=== PATIENT | male | born 1995 | race Two or more races ===

== ENCOUNTER 2025-02-10 11:57 | Emergency (ER) | payer MEDICAID, SELFPAY ==
--- OUTSIDE RECORDS SUMMARY | 2004-12-03 23:00 | XMS_ITS | Encounter Summary ---
Author Organization [facility] Address [address] [place] [address] Care Team Providers Care Activated Sludge Operator Name Role Phone Unavailable Primary Care Provider Unavailabl e Encounter Details Date Type Department Care Team (Late st Contact Info) Description 12/04/2004 Hospital Encounter [facility] Division of Neurology [address] [place] [phone] Social History Tobacco Use Types Packs/Day Years Used Date Smoking Tobacco: Never Assessed Intimate Partner Violence Answer Date R ecorded Safe in relationship? (up to 18) Not on file 05/13/2020 If you are in a relationship , do you feel safe in that relationship? Not currently in a relationship 05/13/2020 Safety and Environment Answer Date Amilcar rded Abuse or neglect worry (Parent/Guardian) Not on file 05/13/2020 Adult hurting you or family (11-18) Not on file 05/13/2020 Someone touched you in a sexual way? (11-18) Not on file 05/13/2020 Is someone hurting your or your family? No 05/13/2020 Historical abuse worry Not on file If you have firearms in the home, are they all in locked storage AND unloaded? Not on file 05/13/2020 Sex and Gender Information Value Date Recorded Sex Assigned at Not on file Legal Sex Male 5:17 AM EST Gender Identity Not on file Sexual Orientation Not on file documented as of this encounter Plan of Treatment Not on file documented as of this encounter Visit Diagnoses Not on filedocumented in this encounter Additional Health Concerns Infection Onset Date Last Indicated Resolved Time COVID-19 Rule Out 05/13/2020 05/13/2020 05/13/2020 11:57 AM EDT documented as of this encounter
--- OUTSIDE RECORDS SUMMARY | 2005-01-24 | XMS_ITS | Encounter Summary ---
Author Organization [facility] Address [address] [place] [address] Care Team Providers Care Clerical Production Worker Name Role Phone Unavailable Primary Care Provider Unavailabl e Encounter Details Date Type Department Care Team (Late st Contact Info) Description 01/24/2005 Hospital Encounter [facility] Division of Neurology [address] [place] [phone] Social History Tobacco Use Types Packs/Day [...] on file documented as of this encounter Miscellaneous Notes * Consent Other - Edt, Audit [place] - 08/08/2009 1:38 PM EDT documented in this encounter Plan of Treatment Not on file documented as of this encounter Visit Diagnoses Not on filedocumented in this encounter Additional Health Concerns Infection Onset Date Last Indicated Resolved Time COVID-19 Rule Out 05/13/2020 05/13/2020 05/13/2020 11:57 AM EDT documented as of this encounter
--- OUTSIDE RECORDS SUMMARY | 2005-01-24 | XMS_ITS | Encounter Summary ---
Author Organization [facility] Address [address] [place] [address] Care Team Providers Care Makeup Artistry Instructor Name Role Phone Unavailable Primary Care Provider Unavailabl e Encounter Details Date Type Department Care Team (Late st Contact Info) Description 01/24/2005 Hospital Encounter [facility] Department of Radiology [address] [place] [phone] Social History Tobacco Use Types Packs/Day [...] on file documented as of this encounter Nursing Notes * Edt, Audit [place] - 02/17/2005 12:00 AM EST * Edt, Audit [place] - 01/24/2005 12:00 AM EST documented in this encounter OR Notes * OR Anesthesia - Edt, Audit [place] - 02/17/2005 12:00 AM EST documented in this encounter Miscellaneous Notes * Consent Informed - Edt, Audit [place] - 02/17/2005 12:00 AM EST documented in this encounter Plan of Treatment Not on file documented as of this encounter Visit Diagnoses Not on filedocumented in this encounter Additional Health Concerns Infection Onset Date Last Indicated Resolved Time COVID-19 Rule Out 05/13/2020 05/13/2020 05/13/2020 11:57 AM EDT documented as of this encounter
--- OUTSIDE RECORDS SUMMARY | 2005-05-28 23:00 | XMS_ITS | Encounter Summary ---
Author Organization [facility] Address [address] [place] [address] Care Team Providers Care Retort Press Operator Name Role Phone Unavailable Primary Care Provider Unavailabl e Encounter Details Date Type Department Care Team (Late st Contact Info) Description 05/29/2005 Hospital Encounter [facility] Division of Neurology [address] [place] [phone] Social History Tobacco Use Types Packs/Day [...] Notes * Consent Other - Edt, Audit [place] - 08/08/2009 1:38 PM EDT * Orders - Edt, Audit [place] - 08/08/2009 1:09 PM EDT documented in this encounter Plan of Treatment Not on file documented as of this encounter Visit Diagnoses Not on filedocumented in this encounter Additional Health Concerns Infection Onset Date Last Indicated Resolved Time COVID-19 Rule Out 05/13/2020 05/13/2020 05/13/2020 11:57 AM EDT documented as of this encounter
--- OUTSIDE RECORDS SUMMARY | 2005-11-25 23:00 | XMS_ITS | Encounter Summary ---
Author Organization [facility] Address [address] [place] [address] Care Team Providers Care Mixer And Blender Name Role Phone Unavailable Primary Care Provider Unavailabl e Encounter Details Date Type Department Care Team (Late st Contact Info) Description 11/26/2005 Hospital Encounter [facility] Division of Neurology [address] [place] [phone] Social History Tobacco Use Types Packs/Day [...] Notes * Consent Other - Edt, Audit [place] - 08/08/2009 1:38 PM EDT * Orders - Edt, Audit [place] - 08/08/2009 1:09 PM EDT documented in this encounter Plan of Treatment Not on file documented as of this encounter Visit Diagnoses Not on filedocumented in this encounter Additional Health Concerns Infection Onset Date Last Indicated Resolved Time COVID-19 Rule Out 05/13/2020 05/13/2020 05/13/2020 11:57 AM EDT documented as of this encounter
--- OUTSIDE RECORDS SUMMARY | 2006-05-26 23:00 | XMS_ITS | Encounter Summary ---
Author Organization [facility] Address [address] [place] [address] Care Team Providers Care Admissions Counselor Name Role Phone Unavailable Primary Care Provider Unavailabl e Encounter Details Date Type Department Care Team (Late st Contact Info) Description 05/27/2006 Hospital Encounter [facility] Division of Neurology [address] [place] [phone] Social History Tobacco Use Types Packs/Day [...] Notes * Consent Other - Edt, Audit [place] - 08/08/2009 1:38 PM EDT * Orders - Edt, Audit [place] - 08/08/2009 1:09 PM EDT documented in this encounter Plan of Treatment Not on file documented as of this encounter Visit Diagnoses Not on filedocumented in this encounter Additional Health Concerns Infection Onset Date Last Indicated Resolved Time COVID-19 Rule Out 05/13/2020 05/13/2020 05/13/2020 11:57 AM EDT documented as of this encounter
--- OUTSIDE RECORDS SUMMARY | 2006-09-17 23:00 | XMS_ITS | Encounter Summary ---
Author Organization [facility] Address [address] [place] [address] Care Team Providers Care Safety Equipment Testing Specialist Name Role Phone Unavailable Primary Care Provider Unavailabl e Encounter Details Date Type Department Care Team (Late st Contact Info) Description 09/18/2006 Hospital Encounter [facility] Division of Neurology [address] [place] [phone] Social History Tobacco Use Types Packs/Day [...] on file documented as of this encounter Procedure Notes * Edt, Audit [place] - 01/06/2010 12:35 PM EST documented in this encounter Plan of Treatment Not on file documented as of this encounter Visit Diagnoses Not on filedocumented in this encounter Additional Health Concerns Infection Onset Date Last Indicated Resolved Time COVID-19 Rule Out 05/13/2020 05/13/2020 05/13/2020 11:57 AM EDT documented as of this encounter
--- OUTSIDE RECORDS SUMMARY | 2006-10-27 23:00 | XMS_ITS | Encounter Summary ---
Author Organization [facility] Address [address] [place] [address] Care Team Providers Care Prosthetist Name Role Phone Unavailable Primary Care Provider Unavailabl e Encounter Details Date Type Department Care Team (Late st Contact Info) Description 10/28/2006 Hospital Encounter [facility] Division of Neurology [address] [place] [phone] Social History Tobacco Use Types Packs/Day [...] as of this encounter Miscellaneous Notes * Orders - Edt, Audit [place] - 12/19/2010 9:45 PM EDT documented in this encounter Plan of Treatment Not on file documented as of this encounter Visit Diagnoses Not on filedocumented in this encounter Additional Health Concerns Infection Onset Date Last Indicated Resolved Time COVID-19 Rule Out 05/13/2020 05/13/2020 05/13/2020 11:57 AM EDT documented as of this encounter
--- OUTSIDE RECORDS SUMMARY | 2024-12-15 10:00 | XMS_ITS | Encounter Summary ---
Author Organization [facility] Address [address] [place] [address] Care Team Providers Care Gravity Prospecting Supervisor Name Role Phone Ricci Sarmiento MD Primary Care Provider [phone] Olivia Galicia APRN Unavailable [phone] George Glynn MD Unavailable [phone] George Glynn MD Unavailable [phone] Reason for Referral * Medications - Authorized Specialty Diagnoses / Procedures Referred By Harsha mccray Referred To Contact Deanna Chow MD [address] [address] Phone: tel: fax: Referral ID Status Reason Start Date Expiration Date V isits Requested Visits Authorized [id number] Authorized 12/16/2024 12/15/2025 1 1 * Medications - Authorized Specialty Diagnoses / Procedures Referred By Harsha mccray Referred To Contact Deanna Chow MD [address] [address] Phone: tel: fax: Referral ID Status Reason Start Date Expiration Date V isits Requested Visits Authorized [id number] Authorized 12/31/2024 12/30/2025 1 1 Encounter Details Date Type Department Care Team (Late st Contact Info) Description 12/15/2024 11:00 AM EDT Office Visit [facility] [address] [place] [address] Deanna Chow MD [address] [place] [address] Focal epilepsy with impairment of consciousness, intractable (CMS/HCC) (Primary Dx) Social History Tobacco Use Types Packs/Day Years Used Date Smoking Tobacco: Never Smokeless Tobacco: Never Alcohol Use Standard Drinks/Week Comments Yes 0 (1 standard drink = 0.6 oz pur e alcohol) Rare CAGE ASSESSMENT Answer Date Recorded Cage unable to access Not on file 03/28/2022 Cage max number of drinks Not on file 2022 Cage Beverages a week Not on file 03/28/2022 Have you ever felt you should CUT down on your d rinking? 0 03/28/2022 Have you been ANNOYED by people criticizing your drinking? 0 03/28/2022 Have you felt GUILTY about your drinking? 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 0 03/28/2022 CAGE Questionnaire Score 0 023 Sex and Gender Information Value Date Recorded Sex Assigned at Not on file Legal Sex Male 7:28 PM EDT Gender Identity Not on file Sexual Orientation Not on file documented as of this encounter Last Filed Vital Signs Vital Sign Reading Time Taken Comments Blood Pressure 114/80 12/15/2024 11:14 AM EDT Pulse 86 12/15/2024 11:14 AM EDT Temperature - - Respiratory Rate - - Oxygen Saturation 97% 12/15/2024 11: 14 AM EDT Inhaled Oxygen Concentration - - Weight 83.3 kg (183 lb 10.3 oz) 025 11:14 AM EDT Height 162.6 cm (5' 4 ) 12/15/2024 11:1 4 AM EDT Body Mass Index 31.52 12/15/2024 11:14 AM EDT documented in this encounter Functional Status * BP Answer Date of Assessment Author 114/80 12/15/2024 11:14 AM EDT Trina Callahan E * Pulse Answer Date of Assessment Author 86 12/15/2024 11:14 AM EDT Tory Callahananda E * SpO2 Answer Date of Assessment Author 97 12/15/2024 11:14 AM EDT Tory Callahananda E * Height Answer Date of Assessment Author 64 12/15/2024 11:14 AM EDTrina Greene E * Weight Answer Date of Assessment Author 2938.29 12/15/2024 11:14 AM EDSheryl Callahan Amanda E * BMI (Calculated) Answer Date of Assessment Author 31.6 12/15/2024 11:14 AM EDTrina Greene E * Percent Excess Weight Loss Answer Date of Assessment Author 0 12/15/2024 11:14 AM EDTrina Greene E * Total Weight Change Percent Answer Date of Assessment Author 2222 12/15/2024 11:14 AM EDTrina Greene E * Weight Change Since Preop Answer Date of Assessment Author 83.28 12/15/2024 11:14 AM EDSheryl Callahan Amanda E * Initial Excess Weight Answer Date of Assessment Author -58.97 12/15/2024 11:14 AM EDTrina Greene E * IBW in lbs (Bariatric) Answer Date of Assessment Author 130 12/15/2024 11:14 AM EDSheryl Callahan Amanda E * Weight Change Since Last Visit Answer Date of Assessment Author 83.28 12/15/2024 11:14 AM EDTrina Greene E * IBW in kg (Bariatric) Answer Date of Assessment Author 58.97 12/15/2024 11:14 AM EDTrina Greene E * Percent of IBW Answer Date of Assessment Author 4,982.69 12/15/2024 11:14 AM EDTrina Greene E * EBW (kg) Answer Date of Assessment Author 2,936.62 12/15/2024 11:14 AM EDT Callahan, Trina E * EBW (lbs) Answer Date of Assessment Author 2,930.17 12/15/2024 11:14 AM EDT Callahan, Trina E * Weight Change 24 hrs Answer Date of Assessment Author 1 12/15/2024 11:14 AM EDT Callahan, Trina E * BSA (Calculated - sq m) Answer Date of Assessment Author 1.94 12/15/2024 11:14 AM EDT Callahan, Trina E * BMI (Calculated) Answer Date of Assessment Author 31.51 12/15/2024 11:14 AM EDT Callahan Trina E * BP Location Answer Date of Assessment Author Left arm 12/15/2024 11:14 AM EDT Callahan, Trina E * IBW/kg (Calculated) Male Answer Date of Assessment Author 59.2 12/15/2024 11:14 AM EDT Callahan, Trina E * IBW/kg (Calculated) Female Answer Date of Assessment Author 54.7 12/15/2024 11:14 AM EDT Callahan, Trina E * IBW/kg (Calculated) Answer Date of Assessment Author 59.2 12/15/2024 11:14 AM EDT Callahan Trina E * Weight in (lb) to have BMI = 25 Answer Date of Assessment Author 145.3 12/15/2024 11:14 AM EDT Callahan, Trina E * BMI (Calculated) Answer Date of Assessment Author 31.6 12/15/2024 11:14 AM EDT Sindy Trina E * Percent Excess Weight Loss Answer Date of Assessment Author 0 12/15/2024 11:14 AM EDT Callahan Trina E * Weight Change Since Preop Answer Date of Assessment Author 83.3 12/15/2024 11:14 AM EDT Callahan, Trina E * Initial Excess Weight Answer Date of Assessment Author -58.97 12/15/2024 11:14 AM EDT Callahan, Trina E * IBW in kg (Bariatric) Answer Date of Assessment Author 58.97 12/15/2024 11:14 AM EDT Callahan Trina E * IBW in lb (Bariatric) Answer Date of Assessment Author 130 12/15/2024 11:14 AM Trina Smith E * Weight Change Since Last Visit Answer Date of Assessment Author 83.3 12/15/2024 11:14 AM Trina Smith E * Percent of IBW Answer Date of Assessment Author 141.26 12/15/2024 11:14 AM Trina Smith E * EBW (kg) Answer Date of Assessment Author 24.31 12/15/2024 11:14 AM Trina Smith E * EBW (lb) Answer Date of Assessment Author 53.64 12/15/2024 11:14 AM Trina Smith E * Difference in Weight Since Last Visit Answer Date of Assessment Author 1 12/15/2024 11:14 AM Trina Smith E * IBW/kg (Calculated) Answer Date of Assessment Author 59.2 12/15/2024 11:14 AM Trina Smith E * Adult Low Range Vt 6mL/kg Answer Date of Assessment Author 355.2 12/15/2024 11:14 AM Trina Smith E * Adult Moderate Range Vt 8mL/kg Answer Date of Assessment Author 473.6 12/15/2024 11:14 AM Trina Smith E * Adult High Range Vt 10mL/kg Answer Date of Assessment Author 592 12/15/2024 11:14 AM Trina Smith E * Pain Score Answer Date of Assessment Author 0 12/15/2024 11:14 AM Trina Smith E * Patient Position Answer Date of Assessment Author Sitting 12/15/2024 11:14 AM Trina Smith E * Pain Screening/Additional Assessments Question Answer Date of Assessment Author Pain Screening/Assessments Pain Screening 12/15/2024 1 1:14 AM Trina Smith E * Pain Screening Answer Date of Assessment Author 0-10 12/15/2024 11:14 AM Trina Smith E * BP Answer Date of Assessment Author 114/80 12/15/2024 11:14 AM Trina Smith E * Pulse Answer Date of Assessment Author 86 12/15/2024 11:14 AM Trina Smith E * SpO2 Answer Date of Assessment Author 97 12/15/2024 11:14 AM Trina Smith E * Height Answer Date of Assessment Author 64 12/15/2024 11:14 AM Trina Smith E * Weight Answer Date of Assessment Author 293.29 12/15/2024 11:14 AM Trina Smith E * BSA (Calculated - sq m) Answer Date of Assessment Author 1.94 12/15/2024 11:14 AM Trina Smith E * BMI (Calculated) Answer Date of Assessment Author 31.51 12/15/2024 11:14 AM EDSheryl Callahan Amanda E * BP Location Answer Date of Assessment Author Left arm 12/15/2024 11:14 AM Trina Smith E * Weight in (lb) to have BMI = 25 Answer Date of Assessment Author 145.3 12/15/2024 11:14 AM Trina Smith E * Pain Score Answer Date of Assessment Author 0 12/15/2024 11:14 AM Trina Smith E * Patient Position Answer Date of Assessment Author Sitting 12/15/2024 11:14 AM Trina Smith E documented as of this encounter Mental Status * BP Answer Entry Date Author 114/80 12/15/2024 11:14 AM Trina Smith E * Pulse Answer Entry Date Author 86 12/15/2024 11:14 AM Trina Smith E * SpO2 Answer Entry Date Author 97 12/15/2024 11:14 AM Trina Smith E * Height Answer Entry Date Author 64 12/15/2024 11:14 AM Trina Smith E * Weight Answer Entry Date Author 2937.29 12/15/2024 11:14 AM Trina Smith E * BMI (Calculated) Answer Entry Date Author 31.6 12/15/2024 11:14 AM Trina Smith E * Percent Excess Weight Loss Answer Entry Date Author 0 12/15/2024 11:14 AM Trina Smith E * Total Weight Change Percent Answer Entry Date Author 2222 12/15/2024 11:14 AM Trina Smith E * Weight Change Since Preop Answer Entry Date Author 83.28 12/15/2024 11:14 AM EDT Callahan, Trina E * Initial Excess Weight Answer Entry Date Author -58.97 12/15/2024 11:14 AM EDT Callahan, Trina E * IBW in lbs (Bariatric) Answer Entry Date Author 130 12/15/2024 11:14 AM EDT Callahan, Trina E * Weight Change Since Last Visit Answer Entry Date Author 83.28 12/15/2024 11:14 AM EDT Callahan, Trina E * IBW in kg (Bariatric) Answer Entry Date Author 58.97 12/15/2024 11:14 AM EDT Callahan, Trina E * Percent of IBW Answer Entry Date Author 4,982.69 12/15/2024 11:14 AM EDT Callahan, Trina E * EBW (kg) Answer Entry Date Author 2,936.62 12/15/2024 11:14 AM EDT Callahan, Trina E * EBW (lbs) Answer Entry Date Author 2,930.17 12/15/2024 11:14 AM EDT Sindy Trina E * Weight Change 24 hrs Answer Entry Date Author 1 12/15/2024 11:14 AM EDT Callahan, Trina E * BSA (Calculated - sq m) Answer Entry Date Author 1.94 12/15/2024 11:14 AM EDT Sindy Trina E * BMI (Calculated) Answer Entry Date Author 31.51 12/15/2024 11:14 AM EDT Callahan, Trina E * BP Location Answer Entry Date Author Left arm 12/15/2024 11:14 AM EDT Sindy Trina E * IBW/kg (Calculated) Male Answer Entry Date Author 59.2 12/15/2024 11:14 AM EDT Callahan, Trina E * IBW/kg (Calculated) Female Answer Entry Date Author 54.7 12/15/2024 11:14 AM EDT Callahan, Trina E * IBW/kg (Calculated) Answer Entry Date Author 59.2 12/15/2024 11:14 AM EDT Callahan Trina E * Restart Pain Assessment Timer Answer Entry Date Author Yes 12/15/2024 11:14 AM EDT Sindy Trina E * Weight in (lb) to have BMI = 25 Answer Entry Date Author 145.3 12/15/2024 11:14 AM EDT Sindy Trina E * BMI (Calculated) Answer Entry Date Author 31.6 12/15/2024 11:14 AM EDT Sindy Trina E * Percent Excess Weight Loss Answer Entry Date Author 0 12/15/2024 11:14 AM EDT Sindy Trina E * Weight Change Since Preop Answer Entry Date Author 83.3 12/15/2024 11:14 AM EDT Tory Callahananda E * Initial Excess Weight Answer Entry Date Author -58.97 12/15/2024 11:14 AM EDT Sindy Trina E * IBW in kg (Bariatric) Answer Entry Date Author 58.97 12/15/2024 11:14 AM EDT Sindy Trina E * IBW in lb (Bariatric) Answer Entry Date Author 130 12/15/2024 11:14 AM EDT Tory Callahananda E * Weight Change Since Last Visit Answer Entry Date Author 83.3 12/15/2024 11:14 AM EDT oTry Callahananda E * Percent of IBW Answer Entry Date Author 141.26 12/15/2024 11:14 AM EDT Tory Callahananda E * EBW (kg) Answer Entry Date Author 24.31 12/15/2024 11:14 AM EDT Sindy Trina E * EBW (lb) Answer Entry Date Author 53.64 12/15/2024 11:14 AM EDT Tory Callahananda E * Difference in Weight Since Last Visit Answer Entry Date Author 1 12/15/2024 11:14 AM EDT Tory Callahananda E * IBW/kg (Calculated) Answer Entry Date Author 59.2 12/15/2024 11:14 AM EDT Tory Callahananda E * Adult Low Range Vt 6mL/kg Answer Entry Date Author 355.2 12/15/2024 11:14 AM EDT Tory Callahananda E * Adult Moderate Range Vt 8mL/kg Answer Entry Date Author 473.6 12/15/2024 11:14 AM EDT Tory Callahananda E * Adult High Range Vt 10mL/kg Answer Entry Date Author 592 12/15/2024 11:14 AM EDT Tory Callahananda E * Pain Score Answer Entry Date Author 0 12/15/2024 11:14 AM IMELDAT Trina Callahan * Patient Position Answer Entry Date Author Sitting 12/15/2024 11:14 AM Trina Smith * Pain Screening Answer Entry Date Author 0-10 12/15/2024 11:14 AM IMELDAT Trina Callahan documented in this encounter Miscellaneous Notes * Progress Notes - Deanna Chow MD - 12/15/2024 11:00 AM EDT I had the pleasure of seeing Levon in [facility] today. His father joined the visit. He saw Mrs. Olivia Walkernachopercious, LIANNE in May 2024, he had no focal seizures with altered consciousnessuntil a couple days ago. He did well for 6 months otherwise. He had focal seizure when he went to the restroom during a football game a couple of days ago, on Saturday. When he came out of the stall he was a bit trained and confused. Duration: less than 3 min. His dad feels that this seizure may have been triggered by the being overwhelmed by the game, the noise and all the people in attendance. When he saw Dr. Glynn, they reported that they were pleased with his seizure control. 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 Typical seizure lasts 30 seconds, he is unable to respond, but he appears to be able to look aroundwhen his name is called. Dad reports Levon has not had GTC seizures for years (last one was 13-14 years ago) and focal unaware seizure with epigastric sensation and his eyes feel funny for 10-20 seconds. Frequency: 1-2 per week couple weeks, the last one was 2 weeks ago. Current ASMs: -Topiramate 200 mg BID -Aptiom 800+800+400 -Clobazam 10 mg BID He has a VNS. He denies any side effects from his ASMs. Past ASMs: He had prior trial of lamotrigine and levetiracetam which led to irritability. He did not tolerate a trial of clonazepam. He also tried brivaracetam. While being seen by Dr. Fela Dos Santos has tried at least 4 different ASMs. He may have tried other ASMs however, his parents could not reca ll the names of these when they filled in the epilepsy questionnaire. He denied depression and anxiety. Epilepsy Evaluation: EMU admission (03/09) Of these 3 days of continuous video EEG monitoring, on the first and the second day of monitoring, the patient had several electrographic seizures all arising over the right hemisphere, greater over the right temporal electrodes at T6, but also some seizures were noted to involve the right posterior quadrant, T6, P4, and O2. In addition to these electrographic seizures (all right hemispheric, maximum right temporal or posterior quadrant) except for one left temporal seizure. With one of the seizures, the patient reported feeling his typical aura of rickey vu with raising epigastric sensation (right temporal onset seizure). Neuropsych testing (09/05) was reported as results reveal a major neurocognitive disorder with impaired mental status. However, verbal list memory is comparatively intact and functionally intact. PET Scan (09/05) showed right mesial temporal hypometabolism, suggestive of a potential epileptogenic focus. MRI Head (04/2017) 1. 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 2. Possible small foci of heterotopia within bilateral centrum semiovale. This can however be better characterized with T1-weighted MPRAGE sequence. 3. Mild ex vacuo dilatation of the bodies of the lateral ventricles. Prior Workup: MRI brain at : 1. 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 Possible small foci of heterotopia within bilateral centrum semiovale. 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 He appears to have focal seizures with or without alteration of awareness and on rare occasions GTCseizures (last GTC seizure was at the age of [age] years old). His aura (epigastric sensation) suggest a mesial temporal onset. Levon and his parents decline epilepsy surgery at this time. Levon and his parents are satisfied withhis current seizure control. Plan: -Increase clobazam to 10/15 mg for 1 week then 15 mg BID -I refilled all his ASMs. -He had recent labs at his PCP's office and these will be faxed for my review. -I interrogated the VNS Generator. I changed more 4 parameters CPT Code 46207 - Complex Programming (>3 changes) VNS Interrogated today: Parameters Start of Session Changes Current (mA) 1.75 1.875 Frequency (Hz) 20 - Pulse Width (uSec) 130 - On time (sec) 30 21 Off time (min) 1.1 - Duty Cycle 29% - Magnet Current (mA) 2 2.25 Magnet On (sec) 60 - Mag Pulse Width (uSec) 250 - Tachycardia Detection On - Autostim Current (mA) 1.75 2 Pulse Width (uSec) 130 - Signal On Time (Sec) 30 - Threshold for Autostim (%) 20% - Battery range 50% Implant Date September 13, 2017 -F/u in my neurostim clinic The patient verbalized understanding of the plan and was agreeable to proceed as noted above. The total time of encounter was 45 minutes including documentation. The patient was counseled regarding instructions for management and safety. Additional time was spent in coordination of care as well as review of medical records, recent tests and notes. documented in this encounter Plan of Treatment Upcoming Encounters Date Type Department Care Team (Late st Contact Info) Description 03/15/2025 9:30 AM EST Office Visit [facility] [address] [place] [address] George Glynn MD [id number] [place] [address] 05/04/2025 11:00 AM EDT Office Visit [facility] [address] [place] [address] Deanna Chow MD [address] [facility] [address] [place] [address] documented as of this encounter Visit Diagnoses Diagnosis Focal epilepsy with impairment of consciousness, intractable (CMS/HCC)- Primary Localization-related (focal) (partial) 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, with intractable epilepsy documented in this encounter Additional Health Concerns Assessment Noted Time A fall risk assessment has been complete d for the patient 12/15/2024 11:14 AM EDT A Body Mass Index follow-up plan has been documented for the patient 2024 1:24 AM EDT documented as of this encounter Care Teams Gravity Prospecting Supervisor Relationship Specialty [place] [id number] PCP - General 07/01/20 Olivia Galicia APRN [address] [place] [id number] Nurse Practitioner Neurology 08/25/20 George Glynn MD [address] [place] [address] Surgeon Neurosurgery 11/28/20 George Glynn MD [address] [place] [address] Surgeon Neurosurgery 03/27/21 documented as of this encounter
[2025-02-10 12:07] VITALS: BP 143/78; PULSE 82; RESP 16; TEMP 37.3; O2SAT 99; BMI 29.0
--- OUTSIDE RECORDS SUMMARY | 2025-02-10 12:25 | XMS_ITS | Encounter Summary ---
Author Organization [facility] Address [address] [place] [address] Care Team Providers Care Territory Outside Sales Manager Name Role Phone Ricci Sarmiento MD Primary Care Provider [phone] Olivia Galicia APRN Unavailable [phone] George Glynn MD Unavailable [phone] George Glynn MD Unavailable [phone] Reason for Visit * Reason Comments Med Refill Encounter Details Date Type Department Care Team (Late st Contact Info) Description 06/27/2022 Refill [place] [facility] [address] [place] [address] Deanna Chow MD [address] [place] [address] Social History Tobacco Use Types Packs/Day Years Used Date Smoking Tobacco: Never Smokeless Tobacco: Never Alcohol Use Standard Drinks/Week Comments No 0 (1 standard drink = 0.6 oz pur e alcohol) CAGE ASSESSMENT Answer Date Recorded Cage unable [...] 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 0 03/28/2022 CAGE Questionnaire Score 0 023 Sex and Gender Information Value Date Recorded Sex Assigned at Not on file Legal Sex Male 7:28 PM EDT Gender Identity Not on file Sexual Orientation Not on file documented as of this encounter Miscellaneous Notes * Telephone Encounter - Ann Marie Arias RN - 06/29/2022 3:20 PM EDT See encounter notes. Refill completed outside refill request. * Telephone Encounter - Olivia Galicia APRN - 06/29/2022 11:21 AM EDT Refilled documented in this encounter Plan of Treatment Upcoming Encounters Date Type Department Care Team (Late st Contact Info) Description 03/15/2025 9:30 AM EST Office Visit [facility] [address] [place] [address] George Glynn MD [address] [place] [address] 05/04/2025 11:00 AM EDT Office Visit [facility] [address] [place] [address] Deanna Chow MD [address] [place] [address] documented as of this encounter Visit Diagnoses Not on filedocumented in this encounter Additional Health Concerns Assessment Noted Time A fall risk assessment has been complete d for the patient 06/27/2022 10:22 AM EDT A Body Mass Index follow-up plan has been documented for the patient 11/06/2022 11:15 AM EDT documented as of this encounter Care Teams Territory Outside Sales Manager Relationship Specialty Start [place] [id number] PCP - General 07/01/20 Olivia Galicia APRN [address] [place] [address] Nurse Practitioner Neurology 08/25/20 George Glynn MD [address] [place] [address] Surgeon Neurosurgery 11/28/20 George Glynn MD [address] [place] [address] Surgeon Neurosurgery 03/27/21 documented as of this encounter
--- OUTSIDE RECORDS SUMMARY | 2025-02-10 12:25 | XMS_ITS | Encounter Summary ---
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 0 03/28/2022 CAGE Questionnaire Score 0 02/08/2 023 Sex and Gender Information Value Date Recorded Sex Assigned at Not on file Legal Sex Male 7:28 PM EDT Gender Identity Not on file Sexual Orientation Not on file documented as of this encounter Functional Status * Communicable Disease Screening Question Answer Date of Assessment Author Have you been in contact wit h someone who was sick? No / Unsure 12/15/2024 11:04 AM EDT Benita Cardoso Do you have any of the following new or worsening symptoms? None of these 12/15/2024 11:04 AM EDT Benita Cardoso * Travel Screening Question Answer Date of Assessment Author Have you traveled intern[place] sam[place] or domestically in the last month? No 12/15/2024 11:04 AM EDT Benita Fierro documented as of this encounter Mental Status * Communicable Disease Screening Question Answer Entry Date Author Have you been in contact wit h someone who was sick? No / Unsure 12/15/2024 11:04 AM EDT Benita Cardoso Do you have any of the following new or worsening symptoms? None of these 12/15/2024 11:04 AM EDT Benita Cardoso * Travel Screening Question Answer Entry Date Author Have you traveled internatio sam[place] or domestically in the last month? No 12/15/2024 11:04 AM EDT Benita Fierro documented in this encounter Plan of Treatment Upcoming Encounters Date Type Department Care Team (Late st Contact Info) Description 03/15/2025 9:30 AM EST Office Visit [facility] [address], 1st [place] [address] George Glynn MD [address] [place] [address] 05/04/2025 11:00 AM EDT Office Visit [facility] [address], [address] [place] [address] Deanna Chow MD [address] [place] [address] documented as of this encounter Visit Diagnoses Not on filedocumented in this encounter Additional Health Concerns Assessment Noted Time A fall risk assessment has been complete d for the patient 12/15/2024 11:14 AM EDT A Body Mass Index follow-up plan has been documented for the patient 2024 1:24 AM EDT documented as of this encounter Care Teams Walking Dragline Oiler Relationship Specialty Start [place] [address] PCP - General 07/01/20 Olivia Galciia APRN [address] [place] [address] Nurse Practitioner Neurology 08/25/20 George Glynn MD [address] [place] [address] Surgeon Neurosurgery 11/28/20 George Glynn MD [address] [place] [address] Surgeon Neurosurgery 03/27/21 documented as of this encounter
--- OUTSIDE RECORDS SUMMARY | 2025-02-10 12:25 | XMS_ITS | Encounter Summary ---
Author Organization [facility] Address [address] [place] [address] Care Team Providers Care Associate Creative Director Name Role Phone Ricci Sarmiento MD Primary Care Provider [phone] Olivia Galicia APRN Unavailable [phone] George Glynn MD Unavailable [phone] George Glynn MD Unavailable [phone] Reason for Visit * Reason Onset Date Comments Prior-authorization/insurance Verification 12/28 Encounter Details Date Type Department Care Team (Late st Contact Info) Description 12/28/2024 Telephone [place] [facility] [address], [address] [place] [address] Deanna Chow MD [address] [place] [address] Prior-authorization/ins urance Verification Social History Tobacco Use Types Packs/Day Years [...] drink first t kyrie in the morning (EYE-EQUIPMENT OPERATOR WAGE HAND) to 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 0 03/28/2022 CAGE Questionnaire Score 0 023 Sex and Gender Information Value Date Recorded Sex Assigned at Not on file Legal Sex Male 7:28 PM EDT Gender Identity Not on file Sexual Orientation Not on file documented as of this encounter Plan of Treatment Upcoming Encounters Date Type Department Care Team (Late st Contact Info) Description 03/15/2025 9:30 AM EST Office Visit [facility] [address], [address]st [place] [address] George Glynn MD [address] [phone] 05/04/2025 11:00 AM EDT Office Visit [facility] [address], [address] [place] [address] Deanna Chow MD [id number] [place] [address] documented as of this encounter Visit Diagnoses Not on filedocumented in this encounter Additional Health Concerns Assessment Noted Time A fall risk assessment has been complete d for the patient 12/15/2024 11:14 AM EDT A Body Mass Index follow-up plan has been documented for the patient 2024 1:24 AM EDT documented as of this encounter Care Teams Associate Creative Director Relationship Specialty Start [place] [address] PCP - General 07/01/20 Olivia Galicia APRN [address] [place] [address] Nurse Practitioner Neurology 08/25/20 George Glynn MD [address] [address] Surgeon Neurosurgery 11/28/20 George Glynn MD [address] [place] [address] Surgeon Neurosurgery 03/27/21 documented as of this encounter
--- OUTSIDE RECORDS SUMMARY | 2025-02-10 12:25 | XMS_ITS | Encounter Summary ---
Author Organization [facility] Address [address] [place] [address] Care Team Providers Care Sponge Packer Name Role Phone Ricci Sarmiento MD Primary Care Provider Olivia Galicia APRN Unavailable [phone] George Glynn MD Unavailable [phone] George Glynn MD Unavailable [phone] Encounter Details Date Type Department Care Team (Late st Contact Info) Description 01/19/[address] [facility] [address], [address] [place] [address] Deanna Chow MD [address] [place] [address] Social History Tobacco Use Types [...] drink first t kyrie in the morning (EYE-LIFE ENRICHMENT ASSISTANT) to 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 0 03/28/2022 CAGE Questionnaire Score 0 023 Sex and Gender Information Value Date Recorded Sex Assigned at Not on file Legal Sex Male 7:28 PM EDT Gender Identity Not on file Sexual Orientation Not on file documented as of this encounter Miscellaneous Notes * Telephone Encounter - Sebastian Beard - 01/20/2025 3:11 PM EST Patient Phone Message Reason for Call: Patient mother returning call would like call back christos regarding care Best contact number and optimal time of day to reach caller: [phone] Note: Please do not reply to this message. Follow-up communication and further actions as a result of this message need to be communicated with the patient directly, if the patient is not active onMyChart. If the patient is active on MyChart, they will receive notification of the communication/outcome via MyChart. * Telephone Encounter - Sebastian Beard - 01/20/2025 10:55 AM EST Patient Phone Message Reason for Call: Patient mother calling back regarding patient care/appt needing call back christos Best contact number and optimal time of day to reach caller: [phone] Note: Please do not reply to this message. Follow-up communication and further actions as a result of this message need to be communicated with the patient directly, if the patient is not active on MyChart. If the patient is active on MyChart, they will receive notification of the communication/outcome via MyChart. * Telephone Encounter - Victoria Cespedes - 01/19/2025 12:01 PM EST Patient Phone Message Reason for Call: Mom is calling to get sooner appt. Feels strange with VNS in head... creating headaches. Please give a clinical call back Best contact number and optimal time of day to reach caller: [phone] Mom Note: Please do not reply to this message. Follow-up communication and further actions as a result of this message need to be communicated with the patient directly, if the patient is not active onMyChart. If the patient is active on MyChart, they will receive notification of the communication/outcome via [facility]. documented in this encounter Plan of Treatment Upcoming Encounters Date Type Department Care Team (Late st Contact Info) Description 03/15/2025 9:30 AM EST Office Visit [facility] [address], [address]st [place] [address] George Glynn MD [address] [address] 05/04/2025 11:00 AM EDT Office Visit [facility] [address], [address]st [place] [address] Deanna Chow MD [address] [address] documented as of this encounter Visit Diagnoses Not on filedocumented in this encounter Additional Health Concerns Assessment Noted Time A fall risk assessment has been complete d for the patient 12/15/2024 11:14 AM EDT A Body Mass Index follow-up plan has been documented for the patient 2024 1:24 AM EDT documented as of this encounter Care Teams Sponge Packer Relationship Specialty Start [place] [address] PCP - General 07/01/20 Olivia Galicia APRN [address] [place] [address] Nurse Practitioner Neurology 08/25/20 George Glynn MD [address] [place] [address] Surgeon Neurosurgery 11/28/20 George Glynn MD [address] [place] [address] Surgeon Neurosurgery 03/27/21 documented as of this encounter
--- OUTSIDE RECORDS SUMMARY | 2025-02-10 12:25 | XMS_ITS | Encounter Summary ---
Author Organization [facility] Address [address] [place] [address] Care Team Providers Care Library Paraprofessional Name Role Phone Ricci Sarmiento MD Primary Care Provider [phone] Olivia Galicia APRN Unavailable [phone] George Glynn MD Unavailable [phone] George Glynn MD Unavailable [phone] Reason for Visit * Reason Comments Med Refill Encounter Details Date Type Department Care Team (Late st Contact Info) Description 08/16/2021 Refill [place] [facility] [address], [address] [place] [address] Deanna Chow MD [address] [place] [address] Social History Tobacco Use Types Packs/Day Years Used Date Smoking Tobacco: Never Smokeless Tobacco: Never Alcohol Use Standard Drinks/Week Comments No 0 (1 standard drink = 0.6 oz pur e alcohol) Sex and Gender Information Value Date Recorded Sex Assigned at Not on file Legal Sex Male 7:28 PM EDT Gender Identity Not on file Sexual Orientation Not on file COVID-19 Exposure Response Date Recorded In the last 10 days, have yo u been in contact with someone who was confirmed or suspected to have Coronavirus/COVID-19? No / Unsure 08/14/2021 11:52 AM EDT documented as of this encounter Miscellaneous Notes * Telephone Encounter - Olivia Galicia APRN - 08/16/2021 2:28 PM EDT Refills sent documented in this encounter Plan of Treatment Upcoming Encounters Date Type Department Care Team (Late st Contact Info) Description 03/15/2025 9:30 AM EST Office Visit [facility] [address], [address] [place] [address] George Glynn MD [facility] [address] [address] 05/04/2025 11:00 AM EDT Office Visit [facility] [address], [address] [place] [address] Deanna Chow MD [facility] [address] [address] documented as of this encounter Visit Diagnoses Not on filedocumented in this encounter Additional Health Concerns Infection Onset Date Last Indicated Resolved Time COVID 19 (Confirmed) Comment:[facility] has verified patient has a COVID-19 positive result. A chart review has been completed, EPI PUI has been completed and sent to appropriate Health Dept. [facility] Rda: Huong Burnette 01/29/2022 01/29/2022 023 5:23 AM EST Assessment Noted Time A fall risk assessment has been complete d for the patient 06/26/2021 2:47 PM EDT documented as of this encounter Care Teams Library Paraprofessional Relationship Specialty Start [place] [address] PCP - General 07/01/20 Olivia Galicia APRN [address] [place] [phone] Nurse Practitioner Neurology 08/25/20 George Glynn MD [address] [place] [address] Surgeon Neurosurgery 11/28/20 George Glynn MD [address] [place] [address] Surgeon Neurosurgery 03/27/21 documented as of this encounter
--- OUTSIDE RECORDS SUMMARY | 2025-02-10 12:25 | XMS_ITS | Clinical Summary ---
Author Organization [facility] Address [address] [place] [address] Care Team Providers Care Director Of Manufacturing Name Role Phone Ricci Sarmiento MD Primary Care Provider [phone] Olivia Galicia APRN Unavailable [phone] George Glynn MD Unavailable [phone] George Glynn MD Unavailable [phone] Allergies No known active allergies Medications albuterol 108 (90 Base) MCG/ACT inhaler INHALE 2 PUFFS Q 4 TO 6 H PRF COUGH/WHEEZE/MIRTHA RTNESS OF AIR 8 Active baclofen (Lioresal) 20 MG tablet Take 1 tablet (20 mg) by mouth. Take 1 tablet by mouth every morning, afternoon, 2 pm, and bedtime 8 Active glycopyrrolate (Robinul) 2 MG tablet Take 4 tablets (8 mg) by mouth 3 (three) times a day. 1 Active nystatin (Mycostatin) cream Apply 1 application topically 2 (two) times a day if needed. 1 Active omeprazole (PriLOSEC) [address] capsule 1 capsule (20 mg) 1 (one) time each day in the morning. 7 Active polyethylene glycol (Miralax) 17 GM/SCOOP powder Take 17 g by mouth 1 (one) time each day if needed. 7 Active SUMAtriptan (Imitrex) 100 MG tablet Take 1 tablet (100 mg) by mouth 1 (one) time if needed. 7 Active ergocalciferol 1.25 MG (07586 UT) capsule 4 Active rosuvastatin (Crestor) 5 MG tablet 4 Active Aptiom 800 MG tablet TAKE 2 1/2 TABLETS BY MOUTH EVERY NIGHT AT BEDTIME 75 tablet 11 5 Active cloBAZam (Onfi) 10 MG tablet Take 1.5 tablets by mouth 2 times a day. Now on 1 tab PO BID- Increase to 1 tab in AM and 1.5 tab in PM for 1 week then 1.5 tab BID. 90 tablet 5 5 Active midazolam (Nayzilam) 5 MG/0.1ML solution Nasal Shonto Shonto in one nostril for generalized convulsive seizure lasting more than 3 minutes or for cluster of seizures. May repeat once in the other nostril. No more than 2 sprays in 24 hours. 2 each 5 5 Active topiramate (Topamax) 200 MG tablet Take 1 tablet by mouth 2 times a day. 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 of gait due to impairment of balance 09/12/2016 Resolved Problems Problem Noted Date Diagnosed Date Resolved Date Spasticity 09/12/2016 11/08/2024 Encounters Date Type Department Care Team Description 01/19/2025 Telephone [facility] [address], [address] [place] [address] Deanna Chow MD 12/28/2024 Telephone [facility] [address], [address] [place] [address] Deanna Chow MD Prior-authorization/in surance Verification 12/24/[address], [address] [place] [address] Deanna Chow MD 12/15/2024 11:00 AM EDT Office Visit [place] [id number] [facility], [address] [place] [address] Deanna Chow MD Focal epilepsy with impairment of consciousness, intractable (CMS/HCC) (Primary Dx) 12/15/[address], [address] [place] [address] Deanna Chow MD Prior-authorization/in surance Verification 12/15/2024 Travel from Last 3 Months Immunizations Immunization Administration Dates Next Due Hep A, Unspecified 12/24/2017 Influenza, Unspecified 03/13/2017,04/07/2015 Influenza, injectable, quadrivalent, preservativ e free 02/01/2019 Tdap 07/06/2024 Family History Medical History Relation Name Comments Cardiac disorder Other 1 Diabetes Other 2 Hypertension Other 3 Other cancer Other 4 Relation Name Status Comments Other 1 Other 2 Other 3 Other 4 Social History Tobacco Use Types Packs/Day Years Used Date Smoking Tobacco: Never Smokeless Tobacco: Never Tobacco Cessation:Counseling Given: Not Answered Alcohol Use Standard Drinks/Week Comments Yes 0 [...] drink first t kyrie in the morning (EYE-CLINICAL REHABILITATION SPECIALIST) to 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 0 03/28/2022 CAGE Questionnaire Score 0 023 Sex and Gender Information Value Date Recorded Sex Assigned at Not on file Legal Sex Male 7:28 PM EDT Gender Identity Not on file Sexual Orientation Not on file Last Filed Vital Signs Vital Sign Reading Time Taken Comments Blood Pressure 114/80 12/15/2024 11:14 AM EDT Pulse 86 12/15/2024 11:14 AM EDT Temperature 36.6 C (97.8 F) 05/29/2022 7:50 AM EDT Respiratory Rate 13 05/29/2022 7:50 AM EDT Oxygen Saturation 97% 12/15/2024 11: 14 AM EDT Inhaled Oxygen Concentration - - Weight 83.3 kg (183 lb 10.3 oz) 025 11:14 AM EDT Height 162.6 cm (5' 4 ) 12/15/2024 11:1 4 AM EDT Body Mass Index 31.52 12/15/2024 11:14 AM EDT Plan of Treatment Upcoming Encounters Date Type Department Care Team (Late st Contact Info) Description 03/15/2025 9:30 AM EST Office Visit [facility] [address], 1st [place] [address] George Glynn MD [address] [facility] [address] [place] [address] 05/04/2025 11:00 AM EDT Office Visit [facility] [address], [address]st [place] [address] Deanna Chow MD [address] [place] [address] Health Maintenance Due Date Last Done Comments [facility]-Depression Screening 1993 [facility]-HIV Screening 1993 [facility]-Hepatitis C Screening 1993 [facility]-Infant/Child/Adol SDOH Screenings 1993 [facility]-Varicella Vaccines (1 of 2 - 13+ 2-dose series) 2006 [facility]- SDOH Screenings 12/19/2011 [facility]-Adult SDOH Screenings 12/19/2011 [facility]-Hepatitis B Vaccines (1 of 3 - 19+ 3-dose series) 2012 [facility]-Pneumococcal Vaccine: Pediatrics (0 to 5 Years) and At-Risk Patients (6 to 49 Years) (1 of 2 - PCV) 2012 [id number] Vaccine (1 - 2024- season) 2024 [facility]-Influenza Vaccine (#1) 10/19/202402/01, 03/13/2017, 04/07/2015 [facility]-DTaP,Tdap,and Td Vaccines (2 - Td or Tdap) 07/06/2034 07/06/2024 [facility]-Zoster Vaccines (1 of 2) 12/19/2043 [facility]-Hepatitis A Vaccines Aged Out 12/24/2017 No longer eligible based on patient's age to complete this topic [facility]-Obesity Intervention Completed 025, 06/15/2024, 03/16/2024, Additional history exists HPV Vaccines (No Doses Required) Completed [facility]-HIB Vaccines Aged Out No longer e ligible based on patient's age to complete this topic [facility]-IPV Vaccines Aged Out No longer e ligible based on patient's age to complete this topic [facility]-Rotavirus Vaccines Aged Out No lo nger eligible based on patient's age to complete this topic Medical Devices Implanted Type Area Logistics Manager Device Identifier Shelf Expiration Date Model / Serial / Lot Neuro Stimulator-08/19 Implanted:08/19 by Lorenzo Vaca MD (Quantity not on file) Neuro Stimulator Left: Brain [id number] / [id number] / Description:VNS Vagal Nerve stimulator Aspire SR MODEL#: [id number], Serial Number: [id number] Insurance [place] [address] Advance Directives * Full Code (Latest Code Status on File) Date Activated Date Inactivated Comments 05/25/2022 8:14 AM 05/29/2022 3:44 PM Question Answer Comments Patient has decision-making capacity? Yes * Full Code Date Activated Date Inactivated Comments 03/26/2022 8:55 AM 03/29/2022 5:04 PM Question Answer Comments Patient has decision-making capacity? Yes Care Teams Director Of Manufacturing Relationship Specialty Start [place] [address] PCP - General 07/01/20 Olivia Galicia APRN [address] [place] [address] Nurse Practitioner Neurology 08/25/20 George Glynn MD [address] [place] [address] Surgeon Neurosurgery 11/28/20 George Glynn MD [address] [place] [address] Surgeon Neurosurgery 03/27/21
--- OUTSIDE RECORDS SUMMARY | 2025-02-10 12:25 | XMS_ITS | Encounter Summary ---
Author Organization [facility] Address [address] [place] [address] Care Team Providers Care Skoog Operator Name Role Phone Ricci Sarmiento MD Primary Care Provider Olivia Galicia APRN Unavailable [phone] George Glynn MD Unavailable [phone] George Glynn MD Unavailable [phone] Reason for Visit * Reason Onset Date Comments Prior-authorization/insurance Verification 12/15 Encounter Details Date Type Department Care Team (Late st Contact Info) Description 12/15/2024 Telephone [facility] [address], [address] [place] [address] Deanna Chow MD [address] [place] [address] Prior-authorization/ins urance Verification Social History [...] drink first t kyrie in the morning (EYE-TIME STUDY ANALYST) to steady your nerves or to get [...] Description 03/15/2025 9:30 AM EST Office Visit [facility] [address], 1st [place] [address] George Glynn MD [address] [phone] 05/04/2025 11:00 AM EDT Office Visit [facility] [address], [address] [place] [address] Deanna Chow MD [id number] [place] [address] documented as of this encounter Visit Diagnoses Not on filedocumented in this encounter Additional Health Concerns Assessment Noted Time A fall risk assessment has been complete d for the patient 12/15/2024 11:14 AM EDT A Body Mass Index follow-up plan has been documented for the patient 2024 1:24 AM EDT documented as of this encounter Care Teams Skoog Operator Relationship Specialty Start [place] [address] PCP - General 07/01/20 Olivia Galicia APRN [address] [address] Nurse Practitioner Neurology 08/25/20 George Glynn MD [address] [address] Surgeon Neurosurgery 11/28/20 George Glynn MD [address] [place] [phone] Surgeon Neurosurgery 03/27/21 documented as of this encounter
--- OUTSIDE RECORDS SUMMARY | 2025-02-10 12:25 | XMS_ITS | Encounter Summary ---
Author Organization [facility] Address [address] [place] [address] Care Team Providers Care Restorative Coordinator Name Role Phone Ricci Sarmiento MD Primary Care Provider [phone] Olivia Galicia APRN Unavailable [phone] George Glynn MD Unavailable [phone] George Glynn MD Unavailable [phone] Encounter Details Date Type Department Care Team (Late st Contact Info) Description 12/24/2024 Telephone [facility] [address], [address] [place] [address] Deanna Chow MD [address] [place] [address] Social History Tobacco Use Types [...] drink first t kyrie in the morning (EYE-CLEAT LAYER) to steady your nerves or to get [...] Description 03/15/2025 9:30 AM EST Office Visit [facility] [address], [address] [place] [address] George Glynn MD [address] [address] 05/04/2025 11:00 AM EDT Office Visit [facility] [address] [place] [address] Deanna Chow MD [address] [facility] [place] [address] documented as of this encounter Visit Diagnoses Not on filedocumented in this encounter Additional Health Concerns Assessment Noted Time A fall risk assessment has been complete d for the patient 12/15/2024 11:14 AM EDT A Body Mass Index follow-up plan has been documented for the patient 2024 1:24 AM EDT documented as of this encounter Care Teams Restorative Coordinator Relationship Specialty [place] [id number] PCP - General 07/01/20 Olivia Galicia APRN [id number] [place] [address] Nurse Practitioner Neurology 08/25/20 George Glynn MD [address] [address] Surgeon Neurosurgery 11/28/20 George Glynn MD [address] [address] Surgeon Neurosurgery 03/27/21 documented as of this encounter
--- OUTSIDE RECORDS SUMMARY | 2025-02-10 12:25 | XMS_ITS | Clinical Summary ---
Author Organization [facility] Address [address] [place] [address] Care Team Providers Care Air Brake Tester Name Role Phone Ricci Sarmiento MD Primary Care Provider Source Comments [facility] is fully rolled out with thefollowing exceptions:[facility] Allergies No known active allergies Medications cloBAZam (ONFI) 10 MG tablet Take 10 mg by mouth 2 times a day. 1 Active APTIOM 800 MG tablet Take 2.5 Tablets by mouth at bedtime. 1 Active nystatin (MYCOSTATIN) 250865 UNIT/GM cream APPLY EXTERNALLY TO THE AFFECTED AREA TWICE DAILY 1 Active polyethylene glycol 3350 (MIRALAX) 17 GM/SCOOP powder 1 time a day as needed. 1 Active topiramate (TOPAMAX) 200 MG tablet 1 Tablet 2 times a day. 1 Active baclofen (LIORESAL) 20 MG tablet Take by mouth. Activ e glycopyrrolate (ROBINUL) 1 MG tablet Take by mouth 3 times a day. Active omeprazole (PriLOSEC) 40 MG delayed release capsule Take 40 mg by mouth 1 time a day. Granules should not be chewed or crushed. Active Social History Tobacco Use Types Packs/Day Years [...] Sign Reading Time Taken Comments Blood Pressure 106/61 05/13/2020 4:10 PM EDT Pulse 73 05/13/2020 4:10 PM EDT Temperature 36 C (96.8 F) 05/13/2020 3:11 PM EDT Respiratory Rate 15 05/13/2020 4:10 PM EDT Oxygen Saturation 94% 05/13/2020 4:10 PM EDT Inhaled Oxygen Concentration - - Weight 87 kg (191 lb 12.8 oz) 05/13/2020 11:20 A M EDT Height 157.8 cm (5' 2.13 ) 02/09/2008 10:[address] Body Mass Index - - Plan of Treatment Health Maintenance Due Date Last Done Comments MMR IMMUNIZATION (1 of 1 - S tandard series) 1994 DTAP/Tdap/Td IMMUNIZATION (1 - Tdap) 2000 Yearly Physical Ages 3-18+ 2004 VARICELLA IMMUNIZATION (1 of 2 - 13+ 2-dose series) 2006 HEPATITIS B IMMUNIZATION (1 of 3 - 19+ 3-dose series) 2012 AMB SEASONAL FLU VACCINE (#1) 10/19/2024 COVID-19 Vaccine ( - 2024-2 6 season) 2024 HIB IMMUNIZATION Aged Out No longer e ligible based on patient's age to complete this topic HPV IMMUNIZATION (No Doses Required) Completed IPV IMMUNIZATION Aged Out No longer e ligible based on patient's age to complete this topic MCV4 IMMUNIZATION Aged Out No longer eligible based on patient's age to complete this topic MENINGOCOCCAL B VACCINE Aged Out No l onger eligible based on patient's age to complete this topic PNEUMOCOCCAL IMMUNIZATION Aged Out No longer eligible based on patient's age to complete this topic Respiratory Syncytial Virus (RSV) <20mo Aged Out No longer eligible b ased on patient's age to complete this topic Insurance Member Subscriber Plan / Payer (Ef fective 2019-Present) Name:Constantino Wells Relation to Subscriber:Self Name:Constantino Wells Payer ID:[id number] (NAIC) Group ID:[id number] Type:O Medicaid Address: [place], [place] Member Subscriber Plan / Payer (Ef fective 2019-Present) Name:Constantino Wells Relation to Subscriber:Self Name:Gabrieleamishcaden Constantino Denny Payer ID:[id number] (NAIC) Group ID:[id number] Type:HMO Medicaid Address: [place], [place] Care Teams Air Brake Tester Relationship Specialty Start Date End Date Ricci Sarmiento MD [address] [facility], [address] [place] [address] PCP - General External Family Practice 05/13/20
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
--- NOTE | 2025-02-10 12:52 | ECG_ITS ---
APPROVED REPORT Exam: Resting ECG HR:67 bpm ECG Measurements Heart Rate 67 AXES VT 190 P 57 QRSd 103 QRS 91 QT 363 T 25 QTc 378 Conclusion SINUS RHYTHM BORDERLINE RIGHT AXIS DEVIATION [QRS AXIS > 90] POSSIBLE ANTERIOR MYOCARDIAL INFARCTION , OF INDETERMINATE AGE [30 ms Q WAVE IN V3/V4, OR R < 0.2 mV IN V4] ABNORMAL ECG UNCONFIRMED REPORT Normal sinus rhythm. No STEMI Electronically signed by : ALEJANDRA BURGESS, 02/10/2025 15:56:40
[2025-02-10] MEDS: ACETAMINOPHEN 500MG TAB 1000 MG PO (13:14)
[2025-02-10] MEDS: BACITRACIN ZINC OINT 30GM TUBE TP (13:14)
[2025-02-10 13:18] LABS: Hematocrit 45.4 % (42.0-52.0); Hemoglobin 15.4 g/dL (14.1-18.0); Immature Granulocytes % 0.5 %; Mean Corpuscular HGB Conc 33.9 g/dL (31.8-35.4); Mean Corpuscular Hemoglobin 29.7 pg (27.0-31.2); Mean Corpuscular Volume 87.5 fl (80-94); Nucleated Red Blood Cells % 0 %; Platelet Count 273 K/mm3 (142-424); Red Blood Count 5.19 M/mm3 (4.60-6.20); Red Cell Distribution Width-SD 40.3 fL; White Blood Count 7.9 K/mm3 (4.8-10.8)
[2025-02-10 13:28] LABS: Albumin Level 5.1 g/dl (3.5-5.0); Chloride 104 mmol/L (98-107); Potassium 3.6 mmoL/L (3.5-5.1); Sodium 136 mmol/L (136-145)
[2025-02-10 13:31] LABS: Alanine Aminotransferase 46 U/L (12-78); Albumin/Globulin Ratio 1.4 (1.1-1.8); Alkaline Phosphatase 145 U/L (38-126); Anion Gap 14.6 mEq/L (5-15); Aspartate Amino Transferase 36 U/L (17-59); Bilirubin,Total 0.4 mg/dl (0.2-1.3); Blood Urea Nitrogen 15 mg/dl (9-20); Calcium 9.4 mg/dl (8.4-10.2); Carbon Dioxide 21 mmol/L (22.0-30.0); Creatine Kinase 152 U/L (55-170); Creatinine Clearance Estimated 137 mL/min (50-200); Creatinine,Serum 0.90 mg/dl (0.66-1.25); Estimated Glomerular Filt Rate 98 ml/min (>60); GFR (African American) 119 ML/MIN (>60); Globulin 3.7 g/dL (1.3-3.2); Glucose 92 mg/dl (74-100); Magnesium 2.0 mg/dl (1.6-2.3); Total Protein,Serum 8.8 g/dl (6.3-8.2)
[2025-02-10 14:26] VITALS: O2SAT 100
[2025-02-10 14:33] LABS: Microscopic, Urine URINE MICROSCOPIC (MICROSCOPIC)
[2025-02-10 14:38] LABS: Bilirubin,Urine Negative (Negative); Color,Urine YELLOW (Yellow); Glucose,Urine (UA) Negative (Negative); Ketones,Urine Negative (Negative); Leukocyte Esterase,Urine Negative (Negative); PH,Urine 7.0 (5.0-8.5); Protein,Urine Negative (Negative); Specific Gravity, Urine 1.015 (1.005-1.030); Urobilinogen,Urine 0.2 EU/dl (0.2)
[2025-02-10 14:45] LABS: Amphetamine/Metha Screen,Urine Negative ng/ml (<1000)
[2025-02-10 14:46] LABS: Barbiturates Screen,Urine Negative ng/ml (<200)
[2025-02-10 14:47] LABS: Benzodiazepines Screen,Urine Positive ng/ml (<200)
[2025-02-10 14:48] LABS: Methadone Screen,Urine Negative ng/ml (<300)
[2025-02-10 14:49] LABS: Opiate Screen,Urine Negative ng/ml (<300)
[2025-02-10 14:50] LABS: Phencyclidine Screen,Urine Negative ng/ml (<25)
[2025-02-10 15:08] VITALS: BP 128/88; PULSE 78; RESP 18; TEMP 36.8; O2SAT 100
[2025-02-10 15:29] LABS: Bacteria,Urine Trace /lpf
== END 2025-02-10 15:15 | disposition home or self-care (01) ==
PROVIDERS: Emergency Provider Student in an Organized Health Care Education/Training Program; PCP Family Medicine
DX: R56.9 Unspecified convulsions (principal); T23.102A Burn of first degree of left hand, unspecified site, initial encounter; T20.16XA Burn of first degree of forehead and cheek, initial encounter; X03.0XXA Exposure to flames in controlled fire, not in building or structure, initial encounter
CPT/HCPCS: 80053; 80307; 81001; 82550; 83605; 83735; 85025; 93005; 99283; 99285